=== PATIENT | female | born 1945 | race Caucasian/White ===

== ENCOUNTER → 2017-06-06 | Outpatient (CLI) | payer MEDICARE, BC ==
--- NOTE | 2017-06-06 15:33 | WOMENS IMAGING REPORT ---
EXAM DESCRIPTION: 3D SCREENING MAMMO BILAT COMPLETED DATE/TIME: 06/06/2017 2:58 pm REASON FOR STUDY: SCREENING MAMMO Z12.31 ENCNTR SCREEN MAMMOGRAM FOR MALIGNANT NEOPLASM OF MARLENY COMPARISON: 2007 to 2015 TECHNIQUE: Standard craniocaudal and mediolateral oblique views of each breast recorded using digita l acquisition and breast tomosynthesis. LIMITATIONS: None. FINDINGS: No masses, calcifications or architectural distortion. No areas of suspicion. Read with the assistance of CAD. .[facility] - R2 Cenova Version 1.3 .[facility] - R2 Cenova Version 1.3 .[facility] - R2 Cenova Version 2.4 .[facility] R2 Cenova Version 2.4 .[facility] - R2 Asphalt Dauber Version 9.2 IMPRESSION: NORMAL MAMMOGRAM. BIRADS 1. BREAST DENSITY: c. The breasts are heterogeneously dense, which may obscure small masses. BIRAD: 1 NEGATIVE RECOMMENDATION: ROUTINE SCREENING COMMENT: The patient has been notified of the results by letter per SA requirements. Additional no tification policies are in place for contacting patient with suspicious or incomplete findings. Quality ID #225: The [employer] recommends an annual screening mammogram for women aged 40 years or over. This facility utilizes a reminder system to ensure that all patients receive reminder letters, and/or direct phone calls for appointments. This includes reminders for routine scr eening mammograms, diagnostic mammograms, or other Breast Imaging Interventions when appropriate. Th is patient will be placed in the appropriate reminder system. The [employer] (ACR) has developed recommendations for screening MRI of the breast s in certain patient populations, to be used in conjunction with mammography. Breast MRI surveillanc e may be appropriate for women with more than 20% lifetime risk of developing breast cancer as deter mined by genetic testing, significant family history of the disease, or history of mantle radiation f or Hodgkins Disease. ACR Practice Guidelines 2008. DBT Technology DBT is a type of tomographic mammography. With conventional mammography, overlapping breast tissue ma y make lesions difficult to detect, even with good compression. DBT uses an x-ray tube that rotates a round the breast, taking images at different angles. These images are then combined to create thin sl ices of the breast that the radiologist can view as a 3D reconstruction. The [employer] unit can perform full-field digital mammograms (2D imaging); or DBT (3D imaging); or both, in a combination mode that quickly performs both the mammogram and the tomosynthesis scan while the breast is still compressed. PQRS 6045F: Fluoroscopic imaging is not utilized for breast tomosynthesis. TECHNICAL DOCUMENTATION: FINDING NUMBER: (1) ASSESSMENT: (1) JOB ID: [id number] [employer]- All Rights Reserved
== END ==
LOC: WI 14:33
PROVIDERS: ATTEND Physician Assistant
DX: Z12.31 Encounter for screening mammogram for malignant neoplasm of breast (principal)
CPT/HCPCS: 77063; G0202; 77067

== ENCOUNTER → 2018-08-31 | Outpatient (CLI) | payer MEDICARE, BC ==
--- NOTE | 2018-08-31 16:12 | WOMENS IMAGING REPORT ---
EXAM DESCRIPTION: BILAT SCREENING MAMMO W/CAD COMPLETED DATE/TIME: 08/31/2018 9:34 am REASON FOR STUDY: ROUTINE BILATERAL SCREENING,Z12.31 Z12.31 ENCNTR SCREEN MAMMOGRAM FOR MALIGNANT N EOPLASM OF MARLENY COMPARISON: [id number] TECHNIQUE: Standard craniocaudal and mediolateral oblique views of each breast recorded using Showcase-TVa l acquisition. LIMITATIONS: None. FINDINGS: No masses, calcifications or architectural distortion. No areas of suspicion. Read with the assistance of CAD. .[facility] - R2 Cenova Version 1.3 .[facility] Imaging - R2 Cenova Version 1.3 .[facility] - R2 Cenova Version 2.4 .[facility] [place] - R2 Cenova Version 2.4 .[facility] - R2 Chairman [employer] Ceo Version 9.2 IMPRESSION: NORMAL MAMMOGRAM. BIRADS 1. BREAST DENSITY: b. There are scattered areas of fibroglandular density. BIRAD: 1 NEGATIVE RECOMMENDATION: ROUTINE SCREENING COMMENT: The patient has been notified of the results by letter per MQSA requirements. Additional no tification policies are in place for contacting patient with suspicious or incomplete findings. Quality ID #[id number]: The [employer] recommends an annual screening mammogram for women aged 40 years or over. This facility utilizes a reminder system to ensure that all patients receive reminder letters, and/or direct phone calls for appointments. This includes reminders for routine scr eening mammograms, diagnostic mammograms, or other Breast Imaging Interventions when appropriate. Th is patient will be placed in the appropriate reminder system. The [employer] (ACR) has developed recommendations for screening MRI of the breast s in certain patient populations, to be used in conjunction with mammography. Breast MRI surveillanc e may be appropriate for women with more than 20% lifetime risk of developing breast cancer as deter mined by genetic testing, significant family history of the disease, or history of mantle radiation f or Hodgkins Disease. ACR Practice Guidelines 2008. TECHNICAL DOCUMENTATION: FINDING NUMBER: (1) ASSESSMENT: (1) JOB ID: [id number] [employer]- All Rights Reserved Reading location - IP/workstation name: [email or web address]
== END ==
LOC: WI 09:17
PROVIDERS: ATTEND Nurse Practitioner Family
DX: Z12.31 Encounter for screening mammogram for malignant neoplasm of breast (principal)
CPT/HCPCS: 77067

== ENCOUNTER 2019-06-08 01:37 | Observation (INO) | payer MEDICARE, BC ==
--- NOTE | 2019-06-08 01:43 | ER Document Report ---
ED General - General Stated Complaint: SHORTNESS OF BREATH Time Seen by Provider: 06/08/19 01:43 Primary Care Provider: JOSHUA HUDSON FNP-C [Primary Care Provider] - Follow up as needed TRAVEL OUTSIDE OF THE [place] IN LAST 30 DAYS: No - HPI Patient complains to provider of: SOB Notes: 74 y/o presenting from home for SOB she came by EMS and was placed on CPAP en route due to respiratory distress no hypoxia has had a productive cough and has completed a course of augmentin from pcp denies a h/o copd but does smoke denies any type of pain denies leg swelling - Related Data Allergies/Adverse Reactions: No Known Allergies Allergy (Unverified 06/08/19 02:52) Past Medical History - Social History Smoking Status: Unknown if Ever Smoked Family History: Reviewed & Not Pertinent Review of Systems - Review of Systems Constitutional: No symptoms reported. denies: Fever EENT: No symptoms reported Cardiovascular: No symptoms reported Respiratory: Cough, Short of breath, Sputum Gastrointestinal: No symptoms reported Genitourinary: No symptoms reported Female Genitourinary: No symptoms reported Musculoskeletal: No symptoms reported Skin: No symptoms reported Hematologic/Lymphatic: No symptoms reported Neurological/Psychological: No symptoms reported Physical Exam - Vital signs Vitals: Resp Pulse Ox 28 H 95 06/08/19 01:40 06/08/19 01:40 Interpretation: Normal - General General appearance: Anxious In distress: Mild Notes: on cpap - HEENT Head: Normocephalic, Atraumatic Eyes: Normal Pupils: PERRL Mucous membranes: Normal Pharynx: Normal Neck: Normal. No: Lymphadenopathy, Meningismus - Respiratory Respiratory status: Respiratory distress, Tachypnea Chest status: Nontender Breath sounds: Productive cough, Rhonchi Chest palpation: Normal - Cardiovascular Rhythm: Regular Heart sounds: Normal auscultation Murmur: No - Abdominal Inspection: Normal Distension: No distension Bowel sounds: Normal Tenderness: Nontender Organomegaly: No organomegaly - Back Back: Normal, Nontender - Extremities General upper extremity: Normal inspection, Nontender, Normal color, Normal ROM, Normal temperature General lower extremity: Normal inspection, Nontender, Normal color, Normal ROM, Normal temperature, Normal weight bearing. No: Amberly's sign - Neurological Neuro grossly intact: Yes Cognition: Normal Orientation: AAOx4 Lodge Coma Scale Eye Opening: Spontaneous Lodge Coma Scale Verbal: Oriented Lodge Coma Scale Motor: Obeys Commands [place]imbola Coma Scale Total: 15 Speech: Normal Motor strength normal: LUE, RUE, LLE, RLE Sensory: Normal - Psychological Associated symptoms: Normal affect, Normal mood - Skin Skin Temperature: Warm Skin Moisture: Dry Skin Color: Normal Course - Re-evaluation Re-evalutation: 06/08/19 01:59 transitioned to bipap will screen for PE w/ dimer will obtain CXR to eval for pna will obtain cardiacs and heart failure markers for potential cardiac source of SOB 06/08/19 04:05 unclear why she is hypoxic given solumedrol by ems will start rocephin/zithromax due to leukocytosis although no infection clearly seen admit requested - Vital Signs Vital signs: Temp Pulse Resp BP Pulse Ox 15 144/78 H 99 06/08/19 03:29 06/08/19 03:29 06/08/19 03:29 - Laboratory Result Diagrams: 06/08/19 01:41 06/08/19 01:41 Laboratory results interpreted by me: 06/08/19 06/08/19 06/08/19 01:41 01:41 01:41 WBC 18.6 H Eos % (Auto) 12.1 H Absolute Neuts (auto) 11.9 H Absolute Eos (auto) 2.2 H D-Dimer 1.10 H Glucose 138 H Calcium 11.5 H AST 39 H NT-Pro-B Natriuret Pep 06/08/19 01:41 WBC Eos % (Auto) Absolute Neuts (auto) Absolute Eos (auto) D-Dimer Glucose Calcium AST NT-Pro-B Natriuret Pep 170 H - Diagnostic Test Radiology reviewed: Image reviewed, Reports reviewed - EKG Interpretation by Me Additional EKG results interpreted by me: 06/08/19 02:38 NSR, rate of 70, no ST changes Discharge - Discharge Clinical Impression: Respiratory distress Leukocytosis Qualifiers: Leukocytosis type: unspecified Qualified Code(s): D72.829 - Elevated white blood cell count, unspecified Condition: Stable Disposition: ADMITTED INPATIENT Admitting Provider: Joslyn (Hospitalist) Unit Admitted: IMCU Referrals: JOSHUA HUDSON FNP-C [Primary Care Provider] - Follow up as needed
[2019-06-08 01:57] LABS: VENOUS BLOOD BASE EXCESS -1.3 mmol/L; VENOUS BLOOD PCO2 42.3 mmHg (35-63); VENOUS BLOOD PH 7.37 (7.30-7.42)
[2019-06-08 01:59] LABS: ABSOLUTE BASOPHILS # (AUTO) 0.2 10^3/uL (0.0-0.2); ABSOLUTE EOSINOPHILS # (AUTO) 2.2 10^3/uL (0.0-0.6); ABSOLUTE MONOCYTES (AUTO) 1.2 10^3/uL (0.1-1.4); ABSOLUTE NEUT (AUTO) 11.9 10^3/uL (1.7-8.2); EOSINOPHILS % (AUTO) 12.1 % (0-6); HEMATOCRIT 40.7 % (36.0-47.0); HEMOGLOBIN 13.8 g/dL (12.0-15.5); LYMPHOCYTES % (AUTO) 16.3 % (13-45); MEAN CORPUSCULAR HEMOGLOBIN 31.6 pg (27.0-33.4); MEAN CORPUSCULAR HGB CONC 33.9 g/dL (32.0-36.0); MEAN CORPUSCULAR VOLUME 93 fl (80-97); MONOCYTES % (AUTO) 6.4 % (3-13); PLATELET COUNT 368 10^3/uL (150-450); RED BLOOD COUNT 4.37 10^6/uL (3.72-5.28); RED CELL DISTRIBUTION WIDTH 12.8 % (11.5-14.0); SEGMENTED NEUTROPHILS % (AUTO) 64.2 % (42-78); TOTAL CELLS COUNTED % (AUTO) 100 %; WHITE BLOOD COUNT 18.6 10^3/uL (4.0-10.5)
[2019-06-08 02:15] LABS: ALBUMIN 4.2 g/dL (3.5-5.0); ALKALINE PHOSPHATASE 85 U/L (38-126); ANION GAP 11 (5-19); ASPARTATE AMINO TRANSFERASE 39 U/L (14-36); BILIRUBIN,DIRECT 0.2 mg/dL (0.0-0.4); BILIRUBIN,TOTAL 0.5 mg/dL (0.2-1.3); BLOOD UREA NITROGEN 14 mg/dL (7-20); CALCIUM 11.5 mg/dL (8.4-10.2); CARBON DIOXIDE 26 mmol/L (22-30); CHLORIDE 101 mmol/L (98-107); GLUCOSE 138 mg/dL (75-110); POTASSIUM 4.6 mmol/L (3.6-5.0); TOTAL PROTEIN 7.1 g/dL (6.3-8.2)
[2019-06-08 02:27] LABS: NT PRO BNP 170 pg/mL (<125)
[2019-06-08 02:29] LABS: TROPONIN I < 0.012 ng/mL
--- NOTE | 2019-06-08 02:59 | RADIOLOGY REPORT (SQ) ---
EXAM DESCRIPTION: X-ray single view chest. CLINICAL HISTORY: 74 years Female, shortness of breath COMPARISON: None. TECHNIQUE: Single portable x-ray view of the chest performed on 06/08/2019 at 2:42 AM FINDINGS: The lungs are well expanded and are clear. There is no evidence of a pneumothorax. The cardiac silhouette is normal in size and configuration. The mediastinal contours are normal. No acute osseous abnormality is identified. No focal soft tissue abnormalities are seen. Lines and tubes: None. IMPRESSION: No evidence of acute intrathoracic disease.
--- NOTE | 2019-06-08 03:45 | RADIOLOGY REPORT (SQ) ---
CLINICAL HISTORY: shortness of breath, elevated d dimer(1.10) CREAT 0.77 COMPARISON: None. 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 MIPS reconstructions were generated. This exam was performed according to our departmental dose-optimization program, which includes automated exposure control, adjustment of the mA and/or kV according to patient size and/or use of iterative reconstruction technique. MIP images were generated. FINDINGS: Thoracic aorta is normal in course and caliber without aneurysm or dissection. Pulmonary arteries are adequately opacified without acute or chronic filling defects. The heart is normal in size. There is no pericardial effusion. Intrathoracic lymph nodes are not enlarged. There is no pleural effusion, pleural thickening or pneumothorax. Central airways are patent. There is minimal upper lung paraseptal emphysema. Small calcified granuloma in the medial right upper lobe. There is no focal consolidation. There are no acute abnormalities within the limited images of the upper abdomen. There are no acute osseous findings. No suspicious bony lesions. IMPRESSION: No aortic dissection or aneurysm. No pulmonary embolus. No pneumonia.
[2019-06-08] MEDS ORDERED: AZITHROMYCIN INJ 500 MG VIAL IV ONE (04:03)
[2019-06-08] MEDS ORDERED: CEFTRIAXONE 1 GM/D5W RTU 1 GM/50 ML RTUPB IV ONE (04:03)
[2019-06-08 04:16] LABS: A TYPE INFLUENZA AG NEGATIVE (NEGATIVE); B INFLUENZA AG NEGATIVE (NEGATIVE)
[2019-06-08] MEDS ORDERED: DEXTROSE 5%-LACTATED RINGERS 1,000 ML IV PRN (05:00)
[2019-06-08] MEDS ORDERED: MAGNESIUM HYDROXIDE SUSP 30 ML UDCUP PO PRN (05:00)
[2019-06-08] MEDS ORDERED: MAG HYDROX/AL HYDROX/SIMETH SUSP 30 ML UDCUP PO PRN (05:00)
[2019-06-08] MEDS ORDERED: PROMETHAZINE HCL INJ 25 MG/1 ML VIAL IV PRN (05:00)
[2019-06-08] MEDS ORDERED: LEVALBUTEROL HCL NEB 0.63 MG/3 ML AMPUL NEB PRN (05:00)
[2019-06-08] MEDS ORDERED: TEMAZEPAM 15 MG CAPSULE PO PRN (05:00)
[2019-06-08] MEDS ORDERED: ACETAMINOPHEN 325 MG TABLET PO PRN (05:05)
[2019-06-08] MEDS ORDERED: NICOTINE 21 MG/24 HR PATCH.TD24 TD PRN (05:05)
[2019-06-08] MEDS ORDERED: MORPHINE SULFATE 10 MG/ML INJ IV PRN (05:05)
[2019-06-08] MEDS: METHYLPREDNISOLONE INJ 40 MG/1 ML SDV IV SCH ×3 (06:14→17:35)
--- NOTE | 2019-06-08 06:19 | PDOC H&P ---
History of Present Illness Admission Date/PCP: 06/08/2018 04:38 BRISSA JENNINGS Patient complains of: Dyspnea History of Present Illness: ROSALBA PAYNE is a 74 year old female who presented to the emergency room with a 2-week history of dyspnea. Patient admits that she is developed worsening dyspnea over the last 2 weeks. She saw her primary care provider about 2 weeks ago and was treated with a course of Augmentin for "pneumonia". Her symptoms have included a cough productive of moderate amounts of purulent sputum and dyspnea worsened by exertion. Denies other associated or accompanying signs and symptoms. Symptoms became severe on the evening of 06/07/2019 resulting in her calling the ambulance to bring her to the hospital. She admits prior similar episodes of lesser severity. She has not identified any additional aggravating or ameliorating factors for her dyspnea. She was treated with CPAP, nebulizer therapy and intravenous Solu-Medrol in the ambulance. In the emergency room she was found to have an elevated white blood count of 18,000 and she was noted to be very hypoxic requiring BiPAP for adequate oxygenation. Chest x-ray and CT of the chest were negative for acute disease although on my evaluation of the chest x-ray acute hyperinflation and moderate to severe chronic COPD changes are noted. Patient was subsequently admitted to the hospital for further evaluation treatment. Past Medical History Cardiac Medical History: Reports: Hypertension Denies: Coronary Artery Disease, Myocardial Infarction Pulmonary Medical History: Denies: Asthma, Chronic Obstructive Pulmonary Disease (COPD), Respiratory Failure EENT Medical History: Denies: Cataracts, Ears - Hearing aids Neurological Medical History: Denies: Hemorrhagic CVA, Ischemic CVA, Seizures Endocrine Medical History: Denies: Diabetes Mellitus Type 1, Diabetes Mellitus Type 2, Hyperthyroidism, Hypothyroidism, Obesity Renal/ Medical History: Denies: Chronic Kidney Disease, Nephrolithiasis Malignancy Medical History: Reports: None GI Medical History: Denies: Cirrhosis, Hepatitis Musculoskeltal Medical History: Denies: Arthritis, Gout Skin Medical History: Denies: Eczema, Psoriasis Psychiatric Medical History: Reports: Tobacco Dependency Denies: Alcohol Dependency, Substance Abuse Traumatic Medical History: Reports: None Hematology: Denies: Anemia, Bleeding Tendencies Infectious Medical History: Reports: None Past Surgical History Past Surgical History: Reports: None Social History Information Source: Patient Lives with: Alone Smoking Status: Current Every Day Smoker Electronic Cigarette use?: No Frequency of Alcohol Use: None Hx Recreational Drug Use: No Drugs: None Hx Prescription Drug Abuse: No - Advance Directive Resuscitation Status: Full Code Surrogate healthcare decision maker:: Carley Calhounott Family History Family History: denies: CAD, DM, Hypertension, Malignancy Parental Family History Reviewed: Yes Children Family History Reviewed: No Sibling(s) Family History Reviewed.: Yes Medication/Allergy Allergies/Adverse Reactions: No Known Allergies Allergy (Unverified 06/08/19 02:52) Review of Systems Constitutional: ABSENT: chills, fever(s) Eyes: ABSENT: visual disturbances, other - Ocular pain Ears: ABSENT: hearing changes, other - Ear pain Nose, Mouth, and Throat: ABSENT: mouth pain, sore throat Cardiovascular: PRESENT: dyspnea on exertion. ABSENT: chest pain, palpitations Respiratory: PRESENT: as per HPI, cough, dyspnea, sputum. ABSENT: hemoptysis Gastrointestinal: ABSENT: abdominal pain, constipation, diarrhea, nausea, vomiting Genitourinary: ABSENT: dysuria, hematuria Musculoskeletal: ABSENT: back pain, joint swelling, muscle weakness Integumentary: ABSENT: pruritus, rash Neurological: ABSENT: confusion, convulsions, focal weakness, memory loss, syncope Psychiatric: ABSENT: anxiety, depression Endocrine: ABSENT: cold intolerance, heat intolerance Hematologic/Lymphatic: ABSENT: easy bleeding, easy bruising Allergic/Immunologic: ABSENT: seasonal rhinorrhea Physical Exam Vital Signs: Temp Pulse Resp BP Pulse Ox 98.7 F 15 144/78 H 99 06/08/19 04:09 06/08/19 03:29 06/08/19 03:29 06/08/19 03:29 Intake & Output 06/06/19 06/07/19 06/08/19 23:59 23:59 23:59 Weight 66 kg General appearance: PRESENT: no acute distress, cooperative, other - On BiPAP Head exam: PRESENT: atraumatic, normocephalic Eye exam: PRESENT: conjunctiva pink. ABSENT: conjunctival injection, scleral icterus Ear exam: PRESENT: normal external ear exam. ABSENT: bleeding, drainage Mouth exam: PRESENT: dry mucosa, neck supple Neck exam: ABSENT: thyromegaly, tracheal deviation Respiratory exam: PRESENT: decreased breath sounds - Markedly decreased breath sounds throughout all greene, prolonged expiratory phas - Markedly prolonged expiratory phase in all greene, symmetrical, wheezes - Minimal high-pitched end expiratory wheezes in all greene, other - On BiPAP. ABSENT: rales, rhonchi Cardiovascular exam: PRESENT: RRR. ABSENT: clicks, gallop, rubs Pulses: PRESENT: normal radial pulses, normal dorsalis pedis pul Vascular exam: PRESENT: normal capillary refill. ABSENT: pallor GI/Abdominal exam: PRESENT: normal bowel sounds, soft Rectal exam: PRESENT: deferred Extremities exam: ABSENT: joint swelling, pedal edema Musculoskeletal exam: ABSENT: deformity, dislocation Neurological exam: PRESENT: alert, oriented to person, oriented to place, oriented to time, oriented to situation, CN II-XII grossly intact. ABSENT: motor sensory deficit Psychiatric exam: PRESENT: appropriate affect, normal mood Skin exam: PRESENT: dry, intact, warm. ABSENT: jaundice, rash, urticaria Results Laboratory Results: 06/08/19 01:41 06/08/19 01:41 06/08/19 06/08/19 06/08/19 01:41 01:41 01:41 WBC 18.6 H RBC 4.37 Hgb 13.8 Hct 40.7 MCV 93 MCH 31.6 MCHC 33.9 RDW 12.8 Plt Count 368 Seg Neutrophils % 64.2 VBG pH 7.37 VBG pCO2 42.3 VBG HCO3 24.0 VBG Base Excess -1.3 Sodium 137.5 Potassium 4.6 Chloride 101 Carbon Dioxide 26 Anion Gap 11 BUN 14 Creatinine 0.77 Est GFR ( Amer) > 60 Glucose 138 H Lactic Acid Calcium 11.5 H Magnesium 2.2 Total Bilirubin 0.5 AST 39 H Alkaline Phosphatase 85 Total Protein 7.1 Albumin 4.2 06/08/19 01:41 WBC RBC Hgb Hct MCV MCH MCHC RDW Plt Count Seg Neutrophils % VBG pH VBG pCO2 VBG HCO3 VBG Base Excess Sodium Potassium Chloride Carbon Dioxide Anion Gap BUN Creatinine Est GFR ( Amer) Glucose Lactic Acid 1.9 Calcium Magnesium Total Bilirubin AST Alkaline Phosphatase Total Protein Albumin 06/08/19 01:41 Troponin I < 0.012 NT-Pro-B Natriuret Pep 170 H Impressions: Chest X-Ray 06/08/19 00:00 IMPRESSION: No evidence of acute intrathoracic disease. Chest/Abdomen CTA 06/08/19 02:43 IMPRESSION: No aortic dissection or aneurysm. No pulmonary embolus. No pneumonia. Assessment and Plan - Diagnosis (1) Acute respiratory failure with hypoxia Is this a current diagnosis for this admission?: Yes (2) Acute exacerbation of chronic obstructive pulmonary disease Is this a current diagnosis for this admission?: Yes (3) Leukocytosis Qualifiers: Leukocytosis type: bandemia Qualified Code(s): D72.825 - Bandemia Is this a current diagnosis for this admission?: Yes (4) Elevated d-dimer Is this a current diagnosis for this admission?: Yes (5) Tobacco use disorder, moderate, dependence Is this a current diagnosis for this admission?: Yes - Plan Summary Summary: Patient is admitted to the medical floor and will be treated with an aggressive pulmonary toilet utilizing Xopenex, Atrovent and Pulmicort. She will also receive intravenous Solu-Medrol in a short split-dose burst therapy. She will receive respiratory support for oxygenation with supplemental oxygen administered via nasal cannula and/or noninvasive airway pressure controlled devices such as BiPAP. Daily CBCs metabolic profiles will be followed. Patient did receive empiric antibiotics in the emergency room, however, with no obvious infection antibiotics will be discontinued at this time. Patient will use morphine sulfate 2 mg IV q. one hour as needed chest pain. Smoking cessation was advised and counseled briefly at the bedside. A nicotine replacement patch will be made available for the patient's use, if she desires. - Time Time Spent with patient: 25-34 minutes Smoking Cessation Education: 3 to 10 minutes Medications reviewed and adjusted accordingly: Yes Anticipated discharge: Home - Inpatient Certification Based on my medical assessment, after consideration of the patient's comorbidities, presenting symptoms, or acuity I expect that the services needed warrant INPATIENT care.: Yes I certify that my determination is in accordance with my understanding of Medicare's requirements for reasonable and necessary INPATIENT services [42 CFR 412.3e].: Yes Medical Necessity: Need Close Monitoring Due to Risk of Patient Decompensation, Need for Nebulizer Therapy and Monitoring of Response, Risk of Complication if Not Cared For in Hospital, Risk of Diagnosis Which Will Require Inpatient Eval/Care/Monitoring
[2019-06-08] MEDS: HEPARIN SOD (PORCINE) 5,000 UNIT/ML 1 ML VIAL SUBCUT SCH ×3 (06:22→22:44)
[2019-06-08 07:24] LABS: ARTERIAL BLOOD BASE EXCESS -1.9 mmol/L; ARTERIAL BLOOD H2CO3 1.08 mmol/L (1.05-1.35); ARTERIAL BLOOD HCO3 22.2 mmol/L (20-24); ARTERIAL BLOOD O2 SATURATION 97.7 % (94-98); ARTERIAL BLOOD PH 7.41 (7.35-7.45); ARTERIAL BLOOD PO2 101.2 mmHg (80-100); ARTERIAL BLOOD TOTAL CO2 23.3 mmol/L (21-25)
[2019-06-08 07:25] LABS: ARTERIAL BLOOD FIO2 30%
[2019-06-08 07:57] LABS: CREATINE KINASE MB 1.28 ng/mL (<4.55)
[2019-06-08] MEDS: IPRATROPIUM BROMIDE 0.02% NEB 0.5 MG/2.5 ML AMPUL NEB SCH ×2 (08:08→15:50)
[2019-06-08] MEDS: BUDESONIDE NEB 0.5 MG/2 ML AMPUL NEB SCH ×2 (08:08→20:30)
[2019-06-08] MEDS: LEVALBUTEROL HCL NEB 1.25 MG/3 ML AMPUL NEB SCH ×2 (08:08→15:50)
[2019-06-08 08:13] LABS: TROPONIN I 0.046 ng/mL
[2019-06-08] MEDS: DOCUSATE SODIUM 100 MG CAPSULE PO SCH ×2 (10:35→17:35)
[2019-06-08] MEDS: FAMOTIDINE 20 MG TABLET PO SCH ×2 (10:35→22:44)
[2019-06-08 13:26] LABS: CREATINE KINASE MB 0.92 ng/mL (<4.55); TROPONIN I 0.036 ng/mL
[2019-06-08 17:52] LABS: TROPONIN I 0.025 ng/mL
[2019-06-09] MEDS: LEVALBUTEROL HCL NEB 1.25 MG/3 ML AMPUL NEB SCH ×2 (00:43→07:51)
[2019-06-09] MEDS: IPRATROPIUM BROMIDE 0.02% NEB 0.5 MG/2.5 ML AMPUL NEB SCH ×2 (00:43→07:51)
[2019-06-09] MEDS: HEPARIN SOD (PORCINE) 5,000 UNIT/ML 1 ML VIAL SUBCUT SCH (05:06)
[2019-06-09 05:23] LABS: HEMATOCRIT 37.6 % (36.0-47.0); HEMOGLOBIN 12.7 g/dL (12.0-15.5); MEAN CORPUSCULAR HEMOGLOBIN 31.2 pg (27.0-33.4); MEAN CORPUSCULAR HGB CONC 33.9 g/dL (32.0-36.0); MEAN CORPUSCULAR VOLUME 92 fl (80-97); PLATELET COUNT 331 10^3/uL (150-450); RED BLOOD COUNT 4.08 10^6/uL (3.72-5.28); RED CELL DISTRIBUTION WIDTH 12.7 % (11.5-14.0); WHITE BLOOD COUNT 16.7 10^3/uL (4.0-10.5)
[2019-06-09 05:49] LABS: ANION GAP 10 (5-19); BLOOD UREA NITROGEN 14 mg/dL (7-20); CALCIUM 10.2 mg/dL (8.4-10.2); CARBON DIOXIDE 26 mmol/L (22-30); CHLORIDE 104 mmol/L (98-107); GLUCOSE 127 mg/dL (75-110); POTASSIUM 4.2 mmol/L (3.6-5.0)
[2019-06-09] MEDS: BUDESONIDE NEB 0.5 MG/2 ML AMPUL NEB SCH (07:51)
[2019-06-09 09:10] VITALS: BP 140/59
[2019-06-09] MEDS ORDERED: ALBUTEROL SULFATE HFA (90 MCG/PUFF) 200 PUFF/8.5 GM MDI IH PRN (09:26)
[2019-06-09] MEDS: FAMOTIDINE 20 MG TABLET PO SCH (10:17)
[2019-06-09] MEDS: DOCUSATE SODIUM 100 MG CAPSULE PO SCH (10:17)
--- NOTE | 2019-06-09 11:48 | EKG REPORT ---
SEVERITY:- NORMAL ECG - SINUS RHYTHM : Confirmed by: Debi De Santiago MD 09-Jun-2019 11:47:36
--- NOTE | 2019-06-10 16:14 | PDOC DISCHARGE SUMMARY ---
Impression - Admit/DC Date/PCP Admission Date/Primary Care Provider: 06/08/19 04:46 BRISSA JENNINGS Discharge Date: 06/09/19 - Assessment Summary: Patient is admitted to the medical floor and will be treated with an aggressive pulmonary toilet utilizing Xopenex, Atrovent and Pulmicort. She will also receive intravenous Solu-Medrol in a short split-dose burst therapy. She will receive respiratory support for oxygenation with supplemental oxygen administered via nasal cannula and/or noninvasive airway pressure controlled devices such as BiPAP. Daily CBCs metabolic profiles will be followed. Patient did receive empiric antibiotics in the emergency room, however, with no obvious infection antibiotics will be discontinued at this time. Patient will use morphine sulfate 2 mg IV q. one hour as needed chest pain. Smoking cessation was advised and counseled briefly at the bedside. A nicotine replacement patch will be made available for the patient's use, if she desires. - Additional Information Resuscitation Status: Full Code Discharge Diet: As Tolerated Discharge Activity: Activity As Tolerated Referrals: JOSHUA HUDSON FNP-C [Primary Care Provider] - Follow up as needed Prescriptions: Azithromycin 250 mg PO DAILY 4 Days #4 tablet Prednisone [Deltasone] 40 mg PO DAILY 3 Days #6 tablet Tiotropium [place] [Spiriva Respimat] 4 gm IH DAILY 30 Days #1 mist.inhal Home Medications: Albuterol Sulfate [Proair HFA Inhalation Aerosol 8.5 gm MDI] 2 puff IH Q6HP PRN 06/08/19 Loratadine [Claritin] 10 mg PO QHS 06/08/19 Propranolol HCl [Inderal 40 mg Tablet] 40 mg PO DAILY 06/08/19 Azithromycin 250 mg PO DAILY 4 Days #4 tablet 06/09/19 Prednisone [Deltasone] 40 mg PO DAILY 3 Days #6 tablet 06/09/19 Tiotropium [place] [Spiriva Respimat] 4 gm IH DAILY 30 Days #1 mist.inhal 06/09/19 History of Present Illiness History of Present Illness: ROSALBA PAYNE is a 74 year old female who presented to the emergency room with a 2-week history of dyspnea. Patient admits that she is developed worsening dyspnea over the last 2 weeks. She saw her primary care provider about 2 weeks ago and was treated with a course of Augmentin for "pneumonia". Her symptoms have included a cough productive of moderate amounts of purulent sputum and dyspnea worsened by exertion. Denies other associated or accompanying signs and symptoms. Symptoms became severe on the evening of 06/07/2019 resulting in her calling the ambulance to bring her to the hospital. She admits prior similar episodes of lesser severity. She has not identified any additional aggravating or ameliorating factors for her dyspnea. She was treated with CPAP, nebulizer therapy and intravenous Solu-Medrol in the ambulance. In the emergency room she was found to have an elevated white blood count of 18,000 and she was noted to be very hypoxic requiring BiPAP for adequate oxygenation. Chest x-ray and CT of the chest were negative for acute disease although on my evaluation of the chest x-ray acute hyperinflation and moderate to severe chronic COPD changes are noted. Patient was subsequently admitted to the hospital for further evaluation treatment. Hospital Course Hospital Course: Acute respiratory failure with hypoxia. Due to acute COPD exacerbation. Was admitted to the medical floor and treated with an aggressive pulmonary toilet utilizing Xopenex, Atrovent and Pulmicort and IV steroids. Daily CBCs metabolic profiles. Patient did receive empiric antibiotics in the emergency room, however, with no obvious infection antibiotics were discontinued. Excellent recovery. SPO2 WNL on room air. Was discharged to restart home meds and continue other 3 days of p.o. steroids. Physical Exam Vital Signs: Temp Pulse Resp BP Pulse Ox 98.2 F 119 H 18 140/59 H 98 06/09/19 10:11 06/09/19 10:11 06/09/19 10:11 06/09/19 10:11 06/09/19 10:11 Intake & Output 06/09/19 06/10/19 06/11/19 06:59 06:59 06:59 Intake Total 480 Balance 480 Weight 59.4 kg General appearance: PRESENT: no acute distress, well-developed, well-nourished Head exam: PRESENT: atraumatic, normocephalic Eye exam: PRESENT: conjunctiva pink, EOMI, PERRLA. ABSENT: scleral icterus Ear exam: PRESENT: normal external ear exam Mouth exam: PRESENT: moist, tongue midline Neck exam: ABSENT: carotid bruit, JVD, lymphadenopathy, thyromegaly Respiratory exam: PRESENT: clear to auscultation lazarus. ABSENT: rales, rhonchi, wheezes Cardiovascular exam: PRESENT: RRR. ABSENT: diastolic murmur, rubs, systolic murmur Pulses: PRESENT: normal dorsalis pedis pul Vascular exam: PRESENT: normal capillary refill GI/Abdominal exam: PRESENT: normal bowel sounds, soft. ABSENT: distended, guarding, mass, organolmegaly, rebound, tenderness Rectal exam: PRESENT: deferred Extremities exam: PRESENT: full ROM. ABSENT: calf tenderness, clubbing, pedal edema Neurological exam: PRESENT: alert, awake, oriented to person, oriented to place, oriented to time, oriented to situation, CN II-XII grossly intact. ABSENT: motor sensory deficit Psychiatric exam: PRESENT: appropriate affect, normal mood. ABSENT: homicidal ideation, suicidal ideation Skin exam: PRESENT: dry, intact, warm. ABSENT: cyanosis, rash Results Laboratory Results: WBC 16.7 10^3/uL (4.0-10.5) H 06/09/19 05:09 RBC 4.08 10^6/uL (3.72-5.28) 06/09/19 05:09 Hgb 12.7 g/dL (12.0-15.5) 06/09/19 05:09 Hct 37.6 % (36.0-47.0) 06/09/19 05:09 MCV 92 fl (80-97) 06/09/19 05:09 MCH 31.2 pg (27.0-33.4) 06/09/19 05:09 MCHC 33.9 g/dL (32.0-36.0) 06/09/19 05:09 RDW 12.7 % (11.5-14.0) 06/09/19 05:09 Plt Count 331 10^3/uL (150-450) 06/09/19 05:09 Lymph % (Auto) 16.3 % (13-45) 06/08/19 01:41 [place]ance % (Auto) 6.4 % (3-13) 06/08/19 01:41 Eos % (Auto) 12.1 % (0-6) H 06/08/19 01:41 Baso % (Auto) 1.0 % (0-2) 06/08/19 01:41 Absolute Neuts (auto) 11.9 10^3/uL (1.7-8.2) H 06/08/19 01:41 Absolute Lymphs (auto) 3.0 10^3/uL (0.5-4.7) 06/08/19 01:41 Absolute Monos (auto) 1.2 10^3/uL (0.1-1.4) 06/08/19 01:41 Absolute Eos (auto) 2.2 10^3/uL (0.0-0.6) H 06/08/19 01:41 Absolute Basos (auto) 0.2 10^3/uL (0.0-0.2) 06/08/19 01:41 Seg Neutrophils % 64.2 % (42-78) 06/08/19 01:41 D-Dimer 1.10 ug/mL (0.00-0.50) H 06/08/19 01:41 Carbonic Acid 1.08 mmol/L (1.05-1.35) 06/08/19 06:40 HCO3/H2CO3 Ratio 20:1 06/08/19 06:40 ABG pH 7.41 (7.35-7.45) 06/08/19 06:40 ABG pCO2 36.0 mmHg (35-45) 06/08/19 06:40 ABG pO2 101.2 mmHg (80-100) H 06/08/19 06:40 ABG HCO3 22.2 mmol/L (20-24) 06/08/19 06:40 ABG Total CO2 23.3 mmol/L (21-25) 06/08/19 06:40 ABG O2 Saturation 97.7 % (94-98) 06/08/19 06:40 ABG Base Excess -1.9 mmol/L 06/08/19 06:40 VBG pH 7.37 (7.30-7.42) 06/08/19 01:41 VBG pCO2 42.3 mmHg (35-63) 06/08/19 01:41 VBG HCO3 24.0 mmol/L (20-32) 06/08/19 01:41 VBG Base Excess -1.3 mmol/L 06/08/19 01:41 FiO2 30% 06/08/19 06:40 Sodium 140.3 mmol/L (137-145) 06/09/19 05:09 Potassium 4.2 mmol/L (3.6-5.0) 06/09/19 05:09 Chloride 104 mmol/L (98-107) 06/09/19 05:09 Carbon Dioxide 26 mmol/L (22-30) 06/09/19 05:09 Anion Gap 10 (5-19) 06/09/19 05:09 BUN 14 mg/dL (7-20) 06/09/19 05:09 Creatinine 0.62 mg/dL (0.52-1.25) 06/09/19 05:09 Est GFR ( Amer) > 60 (>60) 06/09/19 05:09 Est GFR (MDRD) Non-Af > 60 (>60) 06/09/19 05:09 Glucose 127 mg/dL (75-110) H 06/09/19 05:09 Lactic Acid 1.9 mmol/L (0.7-2.1) 06/08/19 01:41 Calcium 10.2 mg/dL (8.4-10.2) 06/09/19 05:09 Magnesium 2.3 mg/dL (1.6-2.3) 06/09/19 05:09 Total Bilirubin 0.5 mg/dL (0.2-1.3) 06/08/19 01:41 Direct Bilirubin 0.2 mg/dL (0.0-0.4) 06/08/19 01:41 Neonat Total Bilirubin Not Reportable 06/08/19 01:41 Neonat Direct Bilirubin Not Reportable 06/08/19 01:41 Neonat Indirect Bili Not Reportable 06/08/19 01:41 AST 39 U/L (14-36) H 06/08/19 01:41 ALT 39 U/L (<35) 06/08/19 01:41 Alkaline Phosphatase 85 U/L (38-126) 06/08/19 01:41 Creatine Kinase 61 U/L (30-135) 06/08/19 17:13 CK-MB (CK-2) 1.00 ng/mL (<4.55) 06/08/19 17:13 Troponin I 0.025 ng/mL 06/08/19 17:13 NT-Pro-B Natriuret Pep 170 pg/mL (<125) H 06/08/19 01:41 Total Protein 7.1 g/dL (6.3-8.2) 06/08/19 01:41 Albumin 4.2 g/dL (3.5-5.0) 06/08/19 01:41 TSH 0.83 uIU/mL (0.47-4.68) 06/09/19 05:09 Influenza A (Rapid) NEGATIVE (NEGATIVE) 06/08/19 03:40 Influenza B (Rapid) NEGATIVE (NEGATIVE) 06/08/19 03:40 06/08/19 06/08/19 06/08/19 01:41 06:55 12:15 CK-MB (CK-2) 1.28 0.92 Troponin I < 0.012 0.046 0.036 NT-Pro-B Natriuret Pep 170 H 06/08/19 17:13 CK-MB (CK-2) 1.00 Troponin I 0.025 NT-Pro-B Natriuret Pep Impressions: Chest X-Ray 06/08/19 00:00 IMPRESSION: No evidence of acute intrathoracic disease. Chest/Abdomen CTA 06/08/19 02:43 IMPRESSION: No aortic dissection or aneurysm. No pulmonary embolus. No pneumonia. Stroke Is this a Stroke Patient?: No Acute Heart Failure - Is this a Heart Failure Patient?: No
== END 2019-06-09 10:30 | disposition home or self-care (01) ==
LOC: ER 01:37 → EH 04:46 → INTOOBSV 04:46 → 5TH 13:58 → 5 14:21
PROVIDERS: ADMIT Emergency Medicine; ATTEND Emergency Medicine
DX: J96.01 Acute respiratory failure with hypoxia (principal); J44.1 Chronic obstructive pulmonary disease with (acute) exacerbation; D72.825 Bandemia; F17.200 Nicotine dependence, unspecified, uncomplicated; R79.89 Other specified abnormal findings of blood chemistry; Z79.899 Other long term (current) drug therapy; Z87.01 Personal history of pneumonia (recurrent); Z60.2 Problems related to living alone
CPT/HCPCS: 93005; 99285; 96375; 96365; 36415 ×2; 87040; 82553; 82803 ×2; 82550; 83735 ×2; 84443; 85025; 85027; 80048; 80053; 84484; 85379; 83605; 87804; 83880; 71045; 71275; 93010; 36600; 94660; 94640 ×3; G0378 ×2; J1644; A9270 ×6; J2920; J3490 ×5; J0456; J0696; J7614